=== PATIENT | male | born 1980 | race Caucasian/White ===

== ENCOUNTER 2017-11-23 22:32 | Emergency (ER) | payer SELFPAY ==
[~2017-11-23] VITALS: Ht 180.3 cm; Wt 72.6 kg
[2017-11-23 22:37] VITALS: Ht 180.3 cm; Wt 72.6 kg
[2017-11-23 23:24] VITALS: BP 141/83
== END 2017-11-23 23:32 | disposition home or self-care (01) ==
LOC: ED 22:32
DX: K12.0 Recurrent oral aphthae (principal); F90.9 Attention-deficit hyperactivity disorder, unspecified type